=== PATIENT | female | born 1995 | race Caucasian/White ===

== ENCOUNTER 2021-12-25 09:33 | Emergency (ER) | payer MEDICAID, SELFPAY ==
[2021-12-25 09:33] VITALS: BP 139/98; PULSE 98; RESP 16; TEMP 36.6; O2SAT 99
--- NOTE | 2021-12-25 09:59 | ED.DENTAL ---
HPI - Dental/Oral General Chief complaint: Dental/Oral Stated complaint: Toothache Time Seen by Provider: 12/25/21 09:59 Source: patient and RN notes reviewed Mode of arrival: ambulatory Limitations: no limitations History of Present Illness Complaint: tooth pain Onset (ago): day(s) (3) Related Data Allergies Allergy/AdvReac Type Severity Reaction Status Date / Time No Known Allergies Allergy Verified 12/25/21 09:40 Review of Systems Review of Systems: All systems reviewed & are unremarkable except as noted in HPI and below Constitutional: Constitutional: Denies chills and Denies fever(s) PMFSH Past Medical History Medical History (Updated 12/25/21 @ 10:16 by Moustapha Bar MD) No active medical problems Surgical History Surgical History (Updated 12/25/21 @ 10:16 by Moustapha Bar MD) No pertinent past surgical history Social History Social History (Updated 12/25/21 @ 10:17 by Moustapha Bar MD) Smoking packs per day: 1 Smoking cigarettes per day: 20.0 Smoking status: Current every day smoker Tobacco type: cigarettes Alcohol intake: current Alcohol use details: Occasional Substance use: never Exam Const: General: healthy appearing, no acute distress and alert Nutritional Appearance: well nourished Orientation/consciousness: patient oriented x3 Limitations: no limitations Eyes: Conjunctivae: conjunctivae normal Pupils: Equal, round and reactive pupils present EOM: EOMs intact bilaterally Neck: Neck: normal visual inspection Resp: Effort & Inspection: normal respiratory effort Auscultation: clear to auscultation bilaterally Cardio: Rate: regular rate Rhythm: regular rhythm GI: Auscultation: normal bowel sounds Back/Spine/Pelvis: Cervical Spine: cervical ROM normal Thoracic/Lumbar Spine: thoraco-lumbar ROM normal Skin: General skin exam: normal color Rashes: no rashes Neuro: General: patient oriented x3, moves all extremities, no focal motor deficits and CN's II-XI intact bilaterally Speech: normal speech Gait exam (Neuro): Normal gait present Extrem: General: normal to inspection and no clubbing, cyanosis or edema Psych: Mental Status: mental status grossly normal Affect: normal affect Attitude: cooperative Course Vital Signs Vital signs: Vital Signs Temperature 36.6 C 12/25/21 09:33 Pulse Rate 98 12/25/21 09:33 Respiratory Rate 16 12/25/21 09:33 Blood Pressure 139/98 H 12/25/21 09:33 Pulse Oximetry 99 12/25/21 09:33 Oxygen Delivery Room Air 12/25/21 09:33 Temperature 36.6 C 12/25/21 09:33 Pulse Rate 98 12/25/21 09:33 Respiratory Rate 16 12/25/21 09:33 Blood Pressure 139/98 H 12/25/21 09:33 Pulse Oximetry 99 12/25/21 09:33 Oxygen Delivery Room Air 12/25/21 09:33 Discharge Plan Discharge Clinical Impression: Toothache Patient Disposition: Home, Self-Care Condition: Stable Instructions: Dental Abscess (ED) Additional Instructions: You can use Tylenol [id number]. Do not use any other Motrin ibuprofen, Aleve Advil while taking nabumetone. Prescriptions: New nabumetone 750 mg tablet 750 mg PO BID 10 Days Qty: 20 0RF amoxicillin 500 mg capsule 500 mg PO Q8H 10 Days Qty: 30 0RF Follow-up/Referrals: UNKNOWN,DOCTOR [Primary Care Provider] - Stand Alone Forms: Work/School Release IP Time of Disposition: 10:13
[2021-12-25] MEDS: KETOROLAC 30 MG/ML VIAL (*BKC) IM (10:17)
== END 2021-12-25 10:32 | disposition home or self-care (01) ==
PROVIDERS: Emergency Provider Emergency Medicine
DX: K08.89 Other specified disorders of teeth and supporting structures (principal)
CPT/HCPCS: 96372; 99283; J1885